=== PATIENT | male | born 1965 | race Caucasian/White ===

== ENCOUNTER → 2019-08-18 | Day surgery (SDC) | payer BC ==
[~2019-08-18] MED LIST: CLARITIN-D 241 EACH PO; LEVOTHYROXINE112 MCG PO; LISINOPRIL-HCT1 EAC2 PO; PROPOFOL IV EMULSION 10 MG/ML 50 ML VIAL ONE
[2019-08-18 08:40] VITALS: BP 143/94
--- NOTE | 2019-08-18 15:34 | Operative Report ---
DATE OF PROCEDURE: SURGEON: Sonny Brooks MD NAME OF THE PROCEDURE: Colonoscopy. PREPROCEDURE DIAGNOSIS: The patient with history of adenomatous colon polyps here for surveillance colonoscopy. DESCRIPTION OF PROCEDURE: After informed written consent, premedications with monitored anesthesia care, standard video Olympus colonoscope was introduced into the rectum and all the way into the cecum and terminal ileum. Medium CO2 insufflation was used. The cecum, ascending colon, ileocecal valve, terminal ileum appeared to be normal. Transverse colon was normal. The descending sigmoid showed scattered diverticulosis. There were two diminutive polyps seen in the area of the sigmoid colon and this was removed by cold biopsy forceps. Retroflexion in the rectum was normal. IMPRESSION: Colon polyp and diverticulosis. RECOMMENDATIONS: We will check the pathology, repeat colonoscopy in 3 to 5 years depending on pathology and previous size of adenomatous polyps, which will be decided on the clinic visit and further recommendations will be based on patient's clinical course. Sonny Brooks MD SR/MODL /[id number]
== END | disposition home or self-care (01) ==
LOC: OR 05:28
PROVIDERS: ATTEND Internal Medicine Gastroenterology
DX: Z09 Encounter for follow-up examination after completed treatment for conditions other than malignant neoplasm (principal); K63.5 Polyp of colon; K57.30 Diverticulosis of large intestine without perforation or abscess without bleeding; Z71.3 Dietary counseling and surveillance; E66.9 Obesity, unspecified; I10 Essential (primary) hypertension; Z01.810 Encounter for preprocedural cardiovascular examination; Z68.32 Body mass index [BMI] 32.0-32.9, adult; Z87.891 Personal history of nicotine dependence; Z85.810 Personal history of malignant neoplasm of tongue; Z85.828 Personal history of other malignant neoplasm of skin; Z92.3 Personal history of irradiation; Z80.0 Family history of malignant neoplasm of digestive organs; Z83.71 Family history of colonic polyps
CPT/HCPCS: 45380; 93005; J2704